=== PATIENT | male | born 1975 | race Caucasian/White ===

== ENCOUNTER → 2019-03-21 | Outpatient (CLI) | payer OTHER ==
[~2019-03-21] MED LIST: ALLEGRA60 MG PO; AMOXICILLIN 50500 M1 PO; ATIVAN0.5 MG PO; MEDROLDOSEPACK PO
== END ==
LOC: MRI 07:06
DX: M47.812 Spondylosis without myelopathy or radiculopathy, cervical region (principal); M43.22 Fusion of spine, cervical region; M25.78 Osteophyte, vertebrae; M50.221 Other cervical disc displacement at C4-C5 level; Z98.1 Arthrodesis status